=== PATIENT | male | born 1990 | race Caucasian/White ===

== ENCOUNTER 2018-12-28 21:42 | Emergency (ER) | payer MEDICAID ==
[~2018-12-28] VITALS: Ht 160 cm; Wt 63.6 kg
[2018-12-28 22:48] VITALS: BP 119/84
[2018-12-28] MEDS ORDERED: NALO4SPR (23:00)
== END 2018-12-28 23:48 | disposition home or self-care (01) ==
LOC: ER 21:43
DX: T40.1X1A Poisoning by heroin, accidental (unintentional), initial encounter (principal); F15.10 Other stimulant abuse, uncomplicated; Z79.899 Other long term (current) drug therapy; Z59.0 Homelessness; Y92.89 Other specified places as the place of occurrence of the external cause
CPT/HCPCS: 99283

== ENCOUNTER 2019-01-05 19:45 | Emergency (ER) | payer MEDICAID ==
[~2019-01-05] VITALS: Ht 160 cm; Wt 54.4 kg
[~2019-01-05 19:45] MED LIST: NALO4SPR
[2019-01-05 20:27] VITALS: BP 147/72
== END 2019-01-05 22:45 | disposition home or self-care (01) ==
LOC: ER 19:46
DX: R07.89 Other chest pain (principal); R05 Cough; F11.90 Opioid use, unspecified, uncomplicated; F15.90 Other stimulant use, unspecified, uncomplicated; Z79.899 Other long term (current) drug therapy; Z59.0 Homelessness
CPT/HCPCS: 93005; 99283

== ENCOUNTER 2019-07-09 21:52 | Emergency (ER) | payer MEDICAID ==
[~2019-07-09] VITALS: Ht 160 cm; Wt 54.5 kg
[2019-07-09 22:05] VITALS: BP 126/88
== END 2019-07-09 22:47 | disposition left against medical advice (07) ==
LOC: ER 21:52
DX: R22.1 Localized swelling, mass and lump, neck (principal); F11.90 Opioid use, unspecified, uncomplicated; Z53.21 Procedure and treatment not carried out due to patient leaving prior to being seen by health care provider

== ENCOUNTER 2019-07-10 18:10 | Emergency (ER) | payer MEDICAID ==
[~2019-07-10] VITALS: Ht 160 cm; Wt 50.0 kg
[2019-07-10 18:50] LABS: BASOPHILS # (AUTO) 0.1 X10'3 (0-0.2); BASOPHILS % (AUTO) 0.9 % (0-1); EOSINOPHILS # (AUTO) 0.1 X10'3 (0-0.9); EOSINOPHILS % (AUTO) 1.5 % (0-6); HEMATOCRIT 44.2 % (42.0-52.0); HEMOGLOBIN 15.5 g/dl (14.0-17.9); LYMPHOCYTES # (AUTO) 1.5 X10'3 (1.1-4.8); LYMPHOCYTES % (AUTO) 26.5 % (21-51); MEAN CORPUSCULAR HEMOGLOBIN 31.8 PG (27.0-31.0); MEAN CORPUSCULAR VOLUME 90.8 FL (78-98); MEAN PLATELET VOLUME 7.1 FL (7.4-10.4); MONOCYTES # (AUTO) 0.9 X10'3 (0-0.9); MONOCYTES % (AUTO) 16.1 % (2-12); NEUTROPHILS # (AUTO) 3.1 X10'3 (1.8-7.7); PLATELET COUNT 378 X10'3 (140-440); RED BLOOD COUNT 4.87 X10'6 (4.70-6.10); RED CELL DISTRIBUTION WIDTH 13.4 % (11.5-14.5); WHITE BLOOD COUNT 5.6 X10'3 (4.5-11.0)
[2019-07-10 19:04] LABS: ALANINE AMINOTRANSFERASE 27 U/L (12-78); ALBUMIN 3.5 G/DL (3.4-5.0); ALBUMIN/GLOBULIN RATIO 0.7 (1.1-1.5); ALKALINE PHOSPHATASE 144 IU/L (46-116); ANION GAP 8 (8-16); ASPARTATE AMINO TRANSFERASE 15 U/L (10-37); BILIRUBIN,TOTAL 0.3 MG/DL (0.1-1.0); BLOOD UREA NITROGEN 10 MG/DL (7-18); BUN/CREATININE RATIO 13.5 (5.4-32.0); CHLORIDE 103 MMOL/L (99-107); CREATININE 0.74 MG/DL (0.60-1.10); GLUCOSE 111 MG/DL (70-104); POTASSIUM 3.9 MMOL/L (3.5-5.1); SODIUM 138 MMOL/L (135-145); TOTAL CARBON DIOXIDE 26.7 MMOL/L (24-32); TOTAL PROTEIN 8.2 G/DL (6.4-8.2); eGFR > 90 ML/MIN
[2019-07-10] MEDS ORDERED: iohexol 300mg/ml 100ml inj. ONE (19:21)
--- NOTE | 2019-07-10 19:42 | NUR ---
Pt transported to CT
[2019-07-10 21:45] VITALS: BP 114/71
== END 2019-07-10 21:46 | disposition home or self-care (01) ==
LOC: ER 18:10
DX: R59.0 Localized enlarged lymph nodes (principal); J02.9 Acute pharyngitis, unspecified; F14.90 Cocaine use, unspecified, uncomplicated; F15.90 Other stimulant use, unspecified, uncomplicated; Z59.0 Homelessness
CPT/HCPCS: 36415; 70491; 80053; 85025; 87081; 87880; 99284; Q9967

== ENCOUNTER 2019-07-19 00:19 | Emergency (ER) | payer MEDICAID ==
[~2019-07-19] VITALS: Ht 160 cm; Wt 52.2 kg
[2019-07-19] MEDS ORDERED: acetaminophen 325mg tablet PO ONE (00:40)
[2019-07-19] MEDS ORDERED: normal saline 1000ML IV soln IV ONE (00:40)
[2019-07-19] MEDS ORDERED: CefTRIAXone 2gm/D5W 50ml 50 ML IV ONE (00:40)
[2019-07-19 01:03] LABS: BASOPHILS # (AUTO) 0.1 X10'3 (0-0.2); EOSINOPHILS # (AUTO) 0.1 X10'3 (0-0.9); EOSINOPHILS % (AUTO) 0.8 % (0-6); HEMATOCRIT 41.1 % (42.0-52.0); HEMOGLOBIN 14.6 g/dl (14.0-17.9); LYMPHOCYTES # (AUTO) 1.3 X10'3 (1.1-4.8); LYMPHOCYTES % (AUTO) 21.3 % (21-51); MEAN CORPUSCULAR HEMOGLOBIN 31.8 PG (27.0-31.0); MEAN CORPUSCULAR HGB CONC 35.5 g/dL (33.0-36.5); MEAN CORPUSCULAR VOLUME 89.4 FL (78-98); MONOCYTES % (AUTO) 15.5 % (2-12); NEUTROPHILS # (AUTO) 3.9 X10'3 (1.8-7.7); NEUTROPHILS % (AUTO) 61.4 % (42-75); PLATELET COUNT 384 X10'3 (140-440); RED CELL DISTRIBUTION WIDTH 13.1 % (11.5-14.5); WHITE BLOOD COUNT 6.3 X10'3 (4.5-11.0)
[2019-07-19 01:08] VITALS: BP 124/79
[2019-07-19 01:11] LABS: CLARITY,URINE CLEAR (Clear); COLOR,URINE YELLOW (Yellow); GLUCOSE, URINE NEGATIVE (Neg); KETONES,URINE NEGATIVE (Neg); LEUKOCYTE ESTERASE ,URINE NEGATIVE (Neg); NITRITES, URINE NEGATIVE (Neg); OCCULT BLOOD,URINE NEGATIVE (Neg); PROTEIN,URINE TRACE mg/dl (Neg); UA COLLECTION TYPE VOIDED
[2019-07-19 01:16] LABS: BACTERIA,URINE NONE SEEN /HPF (Neg); MUCUS STRANDS FEW /LPF (Neg); RBC,URINE 0-2 /HPF (0-2); SQUAMOUS EPITHELIAL CELL,UR NONE SEEN /LPF (FEW); WBC,URINE NONE SEEN /HPF (0-4)
[2019-07-19 01:16] LABS: ALANINE AMINOTRANSFERASE 33 U/L (12-78); ALBUMIN 3.3 G/DL (3.4-5.0); ALBUMIN/GLOBULIN RATIO 0.8 (1.1-1.5); ALKALINE PHOSPHATASE 169 IU/L (46-116); ANION GAP 7 (8-16); ASPARTATE AMINO TRANSFERASE 23 U/L (10-37); BILIRUBIN,TOTAL 0.3 MG/DL (0.1-1.0); BLOOD UREA NITROGEN 8 MG/DL (7-18); BUN/CREATININE RATIO 8.7 (5.4-32.0); CALCIUM 8.7 MG/DL (8.5-10.1); CHLORIDE 100 MMOL/L (99-107); CREATININE 0.92 MG/DL (0.60-1.10); GLUCOSE 95 MG/DL (70-104); POTASSIUM 3.5 MMOL/L (3.5-5.1); SODIUM 137 MMOL/L (135-145); TOTAL CARBON DIOXIDE 29.8 MMOL/L (24-32); TOTAL PROTEIN 7.7 G/DL (6.4-8.2); eGFR > 90 ML/MIN
[2019-07-19 01:17] LABS: PARTIAL THROMBOPLASTIN TIME 38 SECONDS (22-32)
[2019-07-19] MEDS ORDERED: SULF1TAB49 PO (01:30)
== END 2019-07-19 01:38 | disposition home or self-care (01) ==
LOC: ER 00:20
DX: J02.9 Acute pharyngitis, unspecified (principal); R21 Rash and other nonspecific skin eruption; F15.90 Other stimulant use, unspecified, uncomplicated; F11.90 Opioid use, unspecified, uncomplicated; R79.1 Abnormal coagulation profile; Z59.0 Homelessness; Z79.899 Other long term (current) drug therapy
CPT/HCPCS: 36415; 80053; 81001; 83605; 83735; 84145; 85025; 85610; 85730; 87040; 87081; 87880; 96365; 99283; J0696; J7030

== ENCOUNTER 2019-10-09 08:36 | Inpatient (IN) | payer MEDICAID ==
[~2019-10-09] VITALS: Ht 160 cm; Wt 56.8 kg
[2019-10-09] MEDS ORDERED: LIDOcaine 5% patch TP ONE (08:55)
[2019-10-09] MEDS ORDERED: ketorolac trometh inj. 60 MG/2 ML VIAL IM ONE (08:55)
[2019-10-09] MEDS ORDERED: acetaminophen 325mg tablet PO ONE (08:55)
[2019-10-09] MEDS ORDERED: morphine 4 MG/ML inj SYRINge IV ONE (09:30)
[2019-10-09 10:06] LABS: EOSINOPHILS # (AUTO) 0.1 X10'3 (0-0.9); EOSINOPHILS % (AUTO) 0.3 % (0-6); MEAN CORPUSCULAR VOLUME 89.8 FL (78-98); NEUTROPHILS % (AUTO) 86.5 % (42-75); WHITE BLOOD COUNT 19.6 X10'3 (4.5-11.0)
[2019-10-09 10:07] LABS: BASOPHILS # (AUTO) 0.1 X10'3 (0-0.2); BASOPHILS % (AUTO) 0.3 % (0-1); HEMATOCRIT 43.8 % (42.0-52.0); HEMOGLOBIN 15.4 g/dl (14.0-17.9); LYMPHOCYTES # (AUTO) 1.3 X10'3 (1.1-4.8); LYMPHOCYTES % (AUTO) 6.6 % (21-51); MEAN CORPUSCULAR HEMOGLOBIN 31.5 PG (27.0-31.0); MONOCYTES # (AUTO) 1.2 X10'3 (0-0.9); MONOCYTES % (AUTO) 6.3 % (2-12); PLATELET COUNT 372 X10'3 (140-440); RED BLOOD COUNT 4.88 X10'6 (4.70-6.10); RED CELL DISTRIBUTION WIDTH 13.4 % (11.5-14.5)
[2019-10-09] MEDS ORDERED: iohexol 300mg/ml 100ml inj. ONE (10:09)
[2019-10-09] MEDS ORDERED: normal saline 1000ml 1,000 ML IV ONE (10:10)
[2019-10-09] MEDS ORDERED: cefepime 1GM in D5W 50mL 50 ML IV ONE (10:50)
[2019-10-09] MEDS ORDERED: vancomycin/NS 1 GM ADD-VANTAGE 250 ML IV ONE (10:55)
--- NOTE | 2019-10-09 11:11 | NUR ---
called pharmacy for pt vancomycin and cefepime.
[2019-10-09 11:34] LABS: ALANINE AMINOTRANSFERASE 31 U/L (12-78); ALBUMIN 2.8 G/DL (3.4-5.0); ALBUMIN/GLOBULIN RATIO 0.6 (1.1-1.5); ALKALINE PHOSPHATASE 126 IU/L (46-116); ANION GAP 11 (8-16); ASPARTATE AMINO TRANSFERASE 24 U/L (10-37); BILIRUBIN,TOTAL 0.3 MG/DL (0.1-1.0); BLOOD UREA NITROGEN 9 MG/DL (7-18); BUN/CREATININE RATIO 12.2 (5.4-32.0); CALCIUM 9.3 MG/DL (8.5-10.1); CHLORIDE 100 MMOL/L (99-107); CREATININE 0.74 MG/DL (0.60-1.10); GLUCOSE 101 MG/DL (70-104); MAGNESIUM 1.5 MG/DL (1.5-2.4); POTASSIUM 3.7 MMOL/L (3.5-5.1); SODIUM 138 MMOL/L (135-145); TOTAL CARBON DIOXIDE 26.7 MMOL/L (24-32); TOTAL PROTEIN 7.3 G/DL (6.4-8.2); eGFR > 90 ML/MIN
--- NOTE | 2019-10-09 11:55 | NUR ---
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
[2019-10-09] MEDS ORDERED: normal saline 1000ml 1,000 ML IV SCH (11:56)
[2019-10-09] MEDS ORDERED: morphine 2 MG/ML inj. syringe IV PRN (12:00)
[2019-10-09] MEDS ORDERED: potassium CL 10mEq/100ml bag 100 ML IV PRN ×2 (12:00)
[2019-10-09] MEDS ORDERED: magnesium hydroxide 30ml (MOM) UD suspension PO PRN (12:00)
[2019-10-09] MEDS ORDERED: magnesium 4gm in 100ml NS 100 ML IV PRN (12:00)
[2019-10-09] MEDS ORDERED: magnesium 2GM in 50ml NS 50 ML IV PRN (12:00)
[2019-10-09] MEDS ORDERED: magnesium Cl slow-release 64mg tablet PO PRN (12:00)
[2019-10-09] MEDS ORDERED: acetaminophen 325mg tablet PO PRN (12:00)
[2019-10-09] MEDS ORDERED: HYDROcodone/acetaminophen 5mg/325mg tablet PO PRN (12:00)
[2019-10-09] MEDS ORDERED: potassium Cl 20 mEq SR tablet PO PRN ×2 (12:00)
[2019-10-09] MEDS ORDERED: NO HOME MEDS (12:08)
--- NOTE | 2019-10-09 12:13 | NUR ---
pt denies any home meds ,pt denies any past medical and sx hx,pt iv drug user.
--- NOTE | 2019-10-09 12:43 | NUR ---
Patient in room ED 2. I have received report from CYNDIE Hay and had the opportunity to ask questions and assume patient care.
[2019-10-09 13:00] VITALS: BP 105/62
--- NOTE | 2019-10-09 13:04 | NUR ---
Pt has arrived on the unit.
[2019-10-09 15:00] VITALS: BP 103/63
[2019-10-09] MEDS ORDERED: cefepime 2gm inj IV SCH (16:00)
[2019-10-09] MEDS: CEFEPIME 2 GM in NS 100ml IV.SOLN 100 ML IV SCH (16:55)
--- NOTE | 2019-10-09 18:30 | NUR ---
Patient in room PCU 3013. I have received report from Bonnie Otto RN and had the opportunity to ask questions and assume patient care.
[2019-10-09 19:00] VITALS: BP 110/68
[2019-10-09] MEDS: VANCOMYCIN 750MG IV in NS 250 ML IV SCH (19:53)
[2019-10-09] MEDS: docusate sod 100mg capsule PO SCH (20:12)
[2019-10-09] MEDS: ondansetron/PF 4mg/2ml inj IV PRN (20:21)
--- NOTE | 2019-10-09 21:40 | NUR ---
NOTIFIED pt last used IV heroin this am, he currently has n/v, zofran was given with minimal to no effectiveness. pt recieved one dose of morphine and has orders for norco as well. per MD Jones, hold morphine and norco and give one time suboxone 4mg SL and report back with effectiveness.
[2019-10-09] MEDS ORDERED: buprenorphine/naloxone 2-0.5mg sublingual tablet SL ONE (22:00)
[2019-10-09 23:00] VITALS: BP 121/83
[2019-10-10] MEDS: CEFEPIME 2 GM in NS 100ml IV.SOLN 100 ML IV SCH ×2 (00:40→08:05)
[2019-10-10 03:00] VITALS: BP 126/72
[2019-10-10] MEDS: VANCOMYCIN 750MG IV in NS 250 ML IV SCH ×2 (03:07→11:44)
[2019-10-10 05:38] LABS: BASOPHILS # (AUTO) 0.1 X10'3 (0-0.2); BASOPHILS % (AUTO) 0.9 % (0-1); EOSINOPHILS % (AUTO) 0 % (0-6); HEMATOCRIT 38.4 % (42.0-52.0); HEMOGLOBIN 13.1 g/dl (14.0-17.9); LYMPHOCYTES # (AUTO) 0.5 X10'3 (1.1-4.8); LYMPHOCYTES % (AUTO) 3.9 % (21-51); MEAN CORPUSCULAR HEMOGLOBIN 31.1 PG (27.0-31.0); MEAN CORPUSCULAR HGB CONC 34.2 g/dL (33.0-36.5); MEAN CORPUSCULAR VOLUME 91.1 FL (78-98); MEAN PLATELET VOLUME 7.8 FL (7.4-10.4); MONOCYTES # (AUTO) 0.6 X10'3 (0-0.9); MONOCYTES % (AUTO) 4.7 % (2-12); NEUTROPHILS # (AUTO) 11.6 X10'3 (1.8-7.7); NEUTROPHILS % (AUTO) 90.5 % (42-75); PLATELET COUNT 380 X10'3 (140-440); RED BLOOD COUNT 4.22 X10'6 (4.70-6.10); RED CELL DISTRIBUTION WIDTH 13.3 % (11.5-14.5); WHITE BLOOD COUNT 12.8 X10'3 (4.5-11.0)
[2019-10-10 05:42] LABS: ALBUMIN 2.6 G/DL (3.4-5.0); ANION GAP 12 (8-16); BLOOD UREA NITROGEN 10 MG/DL (7-18); BUN/CREATININE RATIO 15.4 (5.4-32.0); CALCIUM 9.1 MG/DL (8.5-10.1); CHLORIDE 103 MMOL/L (99-107); CREATININE 0.65 MG/DL (0.60-1.10); GLUCOSE 118 MG/DL (70-104); MAGNESIUM 1.6 MG/DL (1.5-2.4); POTASSIUM 3.6 MMOL/L (3.5-5.1); SODIUM 139 MMOL/L (135-145); TOTAL CARBON DIOXIDE 24.2 MMOL/L (24-32); eGFR > 90 ML/MIN
--- NOTE | 2019-10-10 06:34 | NUR ---
Patient in room PCU 3013. I have received report from Adrianna Wright and had the opportunity to ask questions and assume patient care.
--- NOTE | 2019-10-10 06:41 | NUR ---
Problems reprioritized. Patient report given, questions answered & plan of care reviewed with Gale Otto RN.
--- NOTE | 2019-10-10 06:54 | NUR ---
Patient in room PCU 3013. I have received report from CYNDIE Wright and had the opportunity to ask questions and assume patient care.
[2019-10-10 07:00] VITALS: BP 112/71
[2019-10-10] MEDS ORDERED: K and/or MAG REPLACEMENT MC SCH (08:00)
[2019-10-10] MEDS: docusate sod 100mg capsule PO SCH ×2 (08:05→19:51)
[2019-10-10] MEDS: ondansetron/PF 4mg/2ml inj IV PRN (08:06)
--- NOTE | 2019-10-10 08:25 | NUR ---
Felicia Baker regarding ineffective zofran, requesting for other med PAGER ID: [phone] MESSAGE: [id number] - Ben Short: Heroin withdrawl, 4mg Zofran ineffective. Would you like to prescribe another medication? Kindly advise, Thanks! - Louise [phone] Addendum: 10/10/19 at 0921 by Louise Moran RN Dr. Bennett telephone back with new orders for phenergan 12.5mg IV q. 6hours
[2019-10-10] MEDS ORDERED: proCHLORperazine 10 MG/2 ml inj IV PRN (09:40)
--- NOTE | 2019-10-10 09:42 | NUR ---
Spoke to pharmacy about phenergan IV 12.5mg q 6hrs. Pharm did not have phenergan IV. Called Dr. Bennett. Gave orders for Compazine 5mg IV q. 6hrs
[2019-10-10] MEDS ORDERED: VANCOMYCIN LEVEL IV ONE (10:30)
--- NOTE | 2019-10-10 10:50 | NUR ---
Donald at bedside. Orders to D/C compazine
[2019-10-10 11:00] VITALS: BP 119/67
--- NOTE | 2019-10-10 11:28 | NUR ---
Notified by telecommunications line mechanic of pt's HR dropping to high 40s with recovery in to the 90s. Pt also noted to have non-conducting PACs which were auscultated upon assessment. Pt's mother at bedside, denied history of irregular heart rhythm or other abnormalities. Pt resting in bed with occasional abdominal discomfort. Pt denied chest pain, denied nausea/vomiting at this time. Will continue to closely monitor.
--- NOTE | 2019-10-10 13:40 | NUR ---
Asked Donald for order of IS, but decline and asked to place RT eval and treat for patient.
[2019-10-10 15:00] VITALS: BP 121/70
[2019-10-10] MEDS ORDERED: CefTRIAXone 2gm/D5W 50ml 50 ML IV SCH (15:30)
--- NOTE | 2019-10-10 17:06 | NUR ---
Pt had visitor arrive at approx 1630. Pt subsequently entered the bathroom and remained for 10 minutes. Upon returning to bed, pt's demeanor had changed from fatigued & agitated to alert & pleasant. Pt answered questions without delay, a change from all previous communication efforts this shift. Pt directly questioned by this RN about any illegal drug use during this hospital stay. Pt denied drug use. Pt educated on importance of not using illegal drugs while in hospital. Pt also educated on using urinal & allowing nursing staff to accurately measure output.
[2019-10-10 17:34] LABS: HIV ANTIBODY 1&2 RAPID NON-REACTIVE (Neg)
--- NOTE | 2019-10-10 18:43 | NUR ---
Patient in room PCU 3013. I have received report from Gale Otto RN and had the opportunity to ask questions and assume patient care.
--- NOTE | 2019-10-10 18:44 | NUR ---
Problems reprioritized. Patient report given, questions answered & plan of care reviewed with Kyle RN.
[2019-10-10 19:00] VITALS: BP 112/77
[2019-10-10] MEDS ORDERED: VANCOmycin 1250MG/NS 250ml Bag 250 ML IV SCH (19:00)
[2019-10-10] MEDS: lactobacillus rhamnosus 10,000 MMU CELLS/CAPSULE PO SCH (19:51)
[2019-10-10 23:00] VITALS: BP 118/79
--- NOTE | 2019-10-11 02:45 | NUR ---
pt reported a 10/10 pain to the nursing aid. called Md to assess treatment plan due to suspected illegal drug use during end of previous shift (day shift), Md advised medication of 4mg SL Suboxone but ONLY if pt had not used recently due to side effects. RN entered room to assess pain level, pt asleep, pt spontaneously awoken and RN asked "how are you doing?", pt responded "i'm fine". no action will be taken at this time.
[2019-10-11 03:00] VITALS: BP 119/85
[2019-10-11 05:25] LABS: BASOPHILS # (AUTO) 0.1 X10'3 (0-0.2); BASOPHILS % (AUTO) 0.5 % (0-1); EOSINOPHILS % (AUTO) 0.1 % (0-6); HEMATOCRIT 39.5 % (42.0-52.0); HEMOGLOBIN 13.8 g/dl (14.0-17.9); LYMPHOCYTES # (AUTO) 1.9 X10'3 (1.1-4.8); MEAN CORPUSCULAR HEMOGLOBIN 31.3 PG (27.0-31.0); MEAN CORPUSCULAR HGB CONC 34.9 g/dL (33.0-36.5); MEAN CORPUSCULAR VOLUME 89.7 FL (78-98); MEAN PLATELET VOLUME 7.5 FL (7.4-10.4); MONOCYTES # (AUTO) 0.9 X10'3 (0-0.9); MONOCYTES % (AUTO) 7.4 % (2-12); NEUTROPHILS # (AUTO) 9.5 X10'3 (1.8-7.7); PLATELET COUNT 447 X10'3 (140-440); RED BLOOD COUNT 4.41 X10'6 (4.70-6.10); RED CELL DISTRIBUTION WIDTH 13.7 % (11.5-14.5); WHITE BLOOD COUNT 12.4 X10'3 (4.5-11.0)
[2019-10-11 05:42] LABS: ALBUMIN 2.5 G/DL (3.4-5.0); ANION GAP 10 (8-16); BLOOD UREA NITROGEN 8 MG/DL (7-18); CHLORIDE 103 MMOL/L (99-107); CREATININE 0.57 MG/DL (0.60-1.10); GLUCOSE 113 MG/DL (70-104); MAGNESIUM 1.9 MG/DL (1.5-2.4); POTASSIUM 3.7 MMOL/L (3.5-5.1); SODIUM 136 MMOL/L (135-145); TOTAL CARBON DIOXIDE 23.2 MMOL/L (24-32); eGFR > 90 ML/MIN
[2019-10-11 06:00] VITALS: BP 117/75
--- NOTE | 2019-10-11 06:15 | NUR ---
Patient in room PCU 3013. I have received report from CYNDIE Wright and had the opportunity to ask questions and assume patient care.
--- NOTE | 2019-10-11 06:32 | NUR ---
Problems reprioritized. Patient report given, questions answered & plan of care reviewed with Sari Caldwell RN.
[2019-10-11] MEDS: docusate sod 100mg capsule PO SCH (08:00)
[2019-10-11] MEDS: lactobacillus rhamnosus 10,000 MMU CELLS/CAPSULE PO SCH (08:57)
--- NOTE | 2019-10-11 11:26 | NUR ---
Pt went down stairs with gown and tele, TRANSITIONS MANAGER retrieved him from downstairs. He returned to his room and then changed his clothes and left again leaving gown and tele box on bed. He did not collect personal items such as mineral mixer and some drug paraphenalia. It is in custody of [facility]. pt left AMA with IV in [facility]. [facility] was notified of his departure with retained IV.
[2019-10-11] MEDS ORDERED: VANCOMYCIN LEVEL IV ONE (18:30)
== END 2019-10-11 10:50 | disposition left against medical advice (07) | DRG 383 ==
LOC: ER 08:37 → ED HOLD 11:56 → EDBEDREQ 12:49 → PCU 3S 13:00
PROVIDERS: ADMIT Internal Medicine; ATTEND Internal Medicine
PROC: 0WJB3ZZ Inspection of Left Pleural Cavity, Percutaneous Approach (ICD-10-PCS; principal; 2019-10-11)
DX: L08.89 Other specified local infections of the skin and subcutaneous tissue (principal); J90 Pleural effusion, not elsewhere classified; J18.9 Pneumonia, unspecified organism; J98.11 Atelectasis; W11.XXXA Fall on and from ladder, initial encounter; Y93.89 Activity, other specified; Z59.0 Homelessness; Y92.89 Other specified places as the place of occurrence of the external cause; Y99.8 Other external cause status
CPT/HCPCS: 36415; 71045; 71260; 74018; 76604; 76937; 80048; 80053; 80202; 83605; 83735; 83880; 84145; 84484; 85025; 85610; 86703; 87040; 87081; 93005; 93306; 94760; 96365; 96372; 96375; 97116; 97161; 99285; G0378; J0692; J0696; J0780; J1885; J2270; J2405; J3370; J7030; J7050; Q9967

== ENCOUNTER 2020-02-16 09:22 | Emergency (ER) | payer MEDICAID ==
[~2020-02-16] VITALS: Ht 167.6 cm; Wt 68.2 kg
[~2020-02-16 09:22] MED LIST changes: -NALO4SPR; +NO HOME MEDS
--- NOTE | 2020-02-16 09:41 | NUR ---
PATIENT WAS BIB EMS WITH ALOC, POSSIBLE DRUG OD. TRIAGE AND CHARTING DONE UNDER BROTHER'S NAME, BUT CHANGED TO PROPER NAME. VITAL SIGNS PRIOR TO NAME CHANGE: 0740 BP 94/58, HR 72, RR 16, O2 SAT 100% ON RA 0840 BP 99/53, HR 70, RR 14, O2 SAT 100% ON RA PATIENT HAS BEEN LETHARGIC, BUT AROUSABLE WITH TACTILE STIMULI. VSS.
[2020-02-16] MEDS ORDERED: normal saline 1000ml 1,000 ML IV ONE ×2 (10:00)
[2020-02-16 10:14] LABS: ANION GAP 4 (8-16); BLOOD UREA NITROGEN 14 MG/DL (7-18); BUN/CREATININE RATIO 18.4 (5.4-32.0); CALCIUM 8.3 MG/DL (8.5-10.1); CHLORIDE 107 MMOL/L (99-107); CREATININE 0.76 MG/DL (0.60-1.10); GLUCOSE 87 MG/DL (70-104); POTASSIUM 3.6 MMOL/L (3.5-5.1); SODIUM 141 MMOL/L (135-145); TOTAL CARBON DIOXIDE 30.5 MMOL/L (24-32); eGFR > 90 ML/MIN
[2020-02-16 10:15] LABS: ALANINE AMINOTRANSFERASE 30 U/L (12-78); ALBUMIN 3.1 G/DL (3.4-5.0); ALBUMIN/GLOBULIN RATIO 0.9 (1.1-1.5); ALKALINE PHOSPHATASE 121 IU/L (46-116); ASPARTATE AMINO TRANSFERASE 21 U/L (10-37); BILIRUBIN,TOTAL 0.2 MG/DL (0.1-1.0); CREATINE KINASE 105 U/L (39-308); TOTAL PROTEIN 6.7 G/DL (6.4-8.2)
[2020-02-16 10:16] LABS: ETHANOL < 0.010 GM/DL (0.0-0.010)
[2020-02-16 10:21] LABS: BASOPHILS # (AUTO) 0.1 X10'3 (0-0.2); BASOPHILS % (AUTO) 0.8 % (0-1); EOSINOPHILS # (AUTO) 0.3 X10'3 (0-0.9); EOSINOPHILS % (AUTO) 3.6 % (0-6); HEMATOCRIT 43.2 % (42.0-52.0); HEMOGLOBIN 14.8 g/dl (14.0-17.9); HIV ANTIBODY 1&2 RAPID NON-REACTIVE (Neg); LYMPHOCYTES # (AUTO) 3.5 X10'3 (1.1-4.8); LYMPHOCYTES % (AUTO) 40.6 % (21-51); MEAN CORPUSCULAR HEMOGLOBIN 30.4 PG (27.0-31.0); MEAN CORPUSCULAR HGB CONC 34.1 g/dL (33.0-36.5); MEAN CORPUSCULAR VOLUME 89.2 FL (78-98); MEAN PLATELET VOLUME 7.4 FL (7.4-10.4); MONOCYTES # (AUTO) 1.1 X10'3 (0-0.9); MONOCYTES % (AUTO) 12.5 % (2-12); NEUTROPHILS # (AUTO) 3.6 X10'3 (1.8-7.7); NEUTROPHILS % (AUTO) 42.5 % (42-75); PLATELET COUNT 364 X10'3 (140-440); RED BLOOD COUNT 4.85 X10'6 (4.70-6.10); RED CELL DISTRIBUTION WIDTH 13.7 % (11.5-14.5); WHITE BLOOD COUNT 8.5 X10'3 (4.5-11.0)
--- NOTE | 2020-02-16 10:21 | NUR ---
TC FROM MOTHER STATING THAT [facility] WOULD LIKE FOR PATIENT TO RECEIVE HIS DOSE TODAY, PRIOR TO DC. MOTHER INFORMED THAT IT IS UP TO ER MD TO DETERMINE WHETHER THIS CAN BE DONE. [facility] MAY BE CALLING IN TO SPEAK WITH ER MD ABOUT THIS REQUEST.
[2020-02-16] MEDS ORDERED: naloxone 0.4 mg/ml inj IV ONE (11:35)
[2020-02-16] MEDS ORDERED: NALO4SPR BOTHNARES (12:03)
[2020-02-16 13:37] VITALS: BP 108/71
== END 2020-02-16 13:42 | disposition home or self-care (01) ==
LOC: ER 09:23
DX: T40.1X1A Poisoning by heroin, accidental (unintentional), initial encounter (principal); R41.82 Altered mental status, unspecified; F15.90 Other stimulant use, unspecified, uncomplicated; Z59.0 Homelessness; Z79.899 Other long term (current) drug therapy; Y92.89 Other specified places as the place of occurrence of the external cause
CPT/HCPCS: 36415; 80053; 80320; 82550; 85025; 86703; 86803; 96374; 99283; J2310; J7030

== ENCOUNTER 2020-10-21 05:20 | Emergency (ER) | payer MEDICAID ==
[~2020-10-21 05:20] MED LIST changes: +NALO4SPR BOTHNARES
--- NOTE | 2020-10-21 05:30 | NUR ---
PATIENT NOT IN LOBBY FOR TRIAGE
--- NOTE | 2020-10-21 05:59 | NUR ---
PATIENT NOT IN LOBBY FOR 2ND ATTEMPT AT TRIAGE
== END 2020-10-21 06:37 | disposition left against medical advice (07) ==
LOC: ER 05:21
DX: Z00.01 Encounter for general adult medical examination with abnormal findings (principal); Z53.21 Procedure and treatment not carried out due to patient leaving prior to being seen by health care provider

== ENCOUNTER 2020-10-27 13:41 | Emergency (ER) | payer MEDICAID | END 2020-10-27 14:55 | disposition left against medical advice (07) | LOC: ER 13:41 | DX: M54.9 Dorsalgia, unspecified (principal); Z53.21 Procedure and treatment not carried out due to patient leaving prior to being seen by health care provider ==

== ENCOUNTER 2022-07-19 18:37 | Emergency (ER) | payer MEDICAID ==
[~2022-07-19] VITALS: Ht 160 cm; Wt 135.0 kg
[2022-07-19 19:12] VITALS: BP 83/68
== END 2022-07-19 21:04 | disposition left against medical advice (07) ==
LOC: ER 18:38
DX: R21 Rash and other nonspecific skin eruption (principal); Z53.21 Procedure and treatment not carried out due to patient leaving prior to being seen by health care provider

== ENCOUNTER 2023-07-08 04:06 | Emergency (ER) | payer MEDICAID ==
[~2023-07-08] VITALS: Ht 170.2 cm; Wt 68.2 kg
[2023-07-08 04:08] VITALS: BP 137/78; PULSE 89; RESP 16; TEMP 98.6; O2SAT 100
[2023-07-08] MEDS ORDERED: sulfamethoxazole/trimethoprim DS (800/160mg) tablet PO ONE (04:50)
[2023-07-08] MEDS ORDERED: ondansetron 4mg rapidly disintigrating tab PO ONE (04:50)
[2023-07-08] MEDS ORDERED: SULF1TAB49 PO (04:52)
== END 2023-07-08 05:05 | disposition home or self-care (01) ==
LOC: ER 04:07
DX: L03.114 Cellulitis of left upper limb (principal)
CPT/HCPCS: 99283